=== PATIENT | female | born 1955 | race American Indian/Alaskan Native ===

== ENCOUNTER 2022-03-13 22:39 | Emergency (ER) | payer OTHER ==
--- NOTE | 2022-03-14 00:26 | Emergency Department Report ---
ED General Adult HPI - General Stated complaint: ABD PAIN Time Seen by Provider: 03/14/22 00:05 - History of Present Illness Initial comments: Patient is a 66-year-old female brought in by EMS from [facility] for evaluation/treatment of anemia. Patient reports history of chronic anemia requiring intermittent transfusions. She denies any current complaints. Recently underwent surgery for SBO. Denies any abdominal pain, nausea, vomiting, fever or chills. - Related Data Allergies Allergy/AdvReac Type Severity Reaction Status Date / Time atenolol Allergy Hives Verified 03/14/22 00:28 erythromycin base Allergy Hives Verified 03/14/22 00:28 lisinopril Allergy Swelling Verified 03/14/22 00:29 ED Review of Systems ROS: Stated complaint: ABD PAIN Other details as noted in HPI Constitutional: denies: chills, fever Respiratory: denies: cough, shortness of breath, wheezing Cardiovascular: denies: chest pain, palpitations Gastrointestinal: denies: abdominal pain, nausea, diarrhea Genitourinary: denies: urgency, dysuria, discharge Musculoskeletal: as per HPI Skin: denies: rash, lesions Neurological: denies: headache, weakness, paresthesias Psychiatric: denies: anxiety, depression ED Physical Exam - General General appearance: alert, in no apparent distress - Head Head exam: Present: atraumatic, normocephalic - Respiratory Respiratory exam: Present: normal lung sounds bilaterally. Absent: respiratory distress - Cardiovascular Cardiovascular Exam: Present: regular rate, normal rhythm, normal heart sounds - GI/Abdominal GI/Abdominal exam: Present: soft. Absent: distended, tenderness - Rectal Rectal exam: Present: deferred - Neurological Exam Neurological exam: Present: alert, oriented X3 - Psychiatric Psychiatric exam: Present: normal affect, normal mood - Skin Skin exam: Present: warm, dry, intact, normal color ED Course Vital Signs 03/13/22 03/14/22 03/14/22 22:40 03:13 03:15 Temperature 98 F 98.8 F 98.8 F Pulse Rate 70 67 63 Respiratory 18 16 16 Rate Blood Pressure 128/64 138/56 143/60 Blood Pressure [Right] O2 Sat by Pulse 98 96 Oximetry 03/14/22 05:40 Temperature 98.5 F Pulse Rate 65 Respiratory 16 Rate Blood Pressure Blood Pressure 137/59 [Right] O2 Sat by Pulse 96 Oximetry ED Medical Decision Making - Lab Data Result diagrams: 03/14/22 00:34 03/14/22 00:34 - Medical Decision Making [facility]. Hemoglobin today is 7.3. Patient given 1 unit of red blood cells. She remains in stable condition on reassessment. Stable for discharge back to rehab facility. Critical care attestation.: If time is entered above; I have spent that time in minutes in the direct care of this critically ill patient, excluding procedure time. ED Disposition Clinical Impression: Chronic anemia, Encounter for blood transfusion Disposition: [facility] Is pt being admited?: No Condition: Stable Additional Instructions: Please follow-up with your regular doctor within 1 to 2 weeks. Time of Disposition: 05:51
[2022-03-14 00:56] LABS: Basophils # (Auto) 0.1 K/mm3 (0.0-0.1); Basophils % (Auto) 0.8 % (0.0-1.8); Eosinophils # (Auto) 0.2 K/mm3 (0.0-0.4); Hematocrit 22.6 % (30.3-42.9); Hemoglobin 7.3 gm/dl (10.1-14.3); Lymphocytes # (Auto) 1.7 K/mm3 (1.2-5.4); Lymphocytes % (Auto) 19.6 % (13.4-35.0); Mean Corpuscular HGB Conc 32 % (30-34); Mean Corpuscular Volume 88 fl (79-97); Monocytes # (Auto) 0.7 K/mm3 (0.0-0.8); Monocytes % (Auto) 8.4 % (0.0-7.3); Platelet Count 436 K/mm3 (140-440); Red Blood Count 2.56 M/mm3 (3.65-5.03); Red Cell Distribution Width 15.5 % (13.2-15.2)
[2022-03-14 01:13] LABS: Blood Urea Nitrogen 20 mg/dL (7-17); Calcium 8.5 mg/dL (8.4-10.2); Hemolysis Index 3
[2022-03-14 01:16] LABS: BUN/Creatinine Ratio 29
[2022-03-14] MEDS ORDERED: SODIUM CHLORIDE 0.9% 500 ML 500 ML IV ONE (02:02)
[2022-03-14 05:41] VITALS: BP 137/59
== END 2022-03-14 14:10 ==
LOC: ED 22:39
DX: D64.9 Anemia, unspecified (principal); T80.92XA Unspecified transfusion reaction, initial encounter
CPT/HCPCS: 36415; 36430; 80048; 85025; 86850; 86900; 86901; 86920; 99283; P9016; 99285